=== PATIENT | female | born 1945 | race Caucasian/White ===

== ENCOUNTER → 2024-07-28 | Outpatient (REF) | payer MEDICARE, OTHER | LOC: M LAB REF 17:31 | PROVIDERS: ATTEND Otolaryngology | DX: R22.1 Localized swelling, mass and lump, neck (principal) ==

== ENCOUNTER → 2024-08-30 | Outpatient (CLI) | payer MEDICARE, OTHER ==
[~2024-08-30] MED LIST: LIDOCAINE 1% MDV 20ML VIAL As Ordered ONE
[2024-08-30 13:00] VITALS: TEMP 97.2
[2024-08-30 13:47] VITALS: BP 189/89; O2SAT 98
== END ==
LOC: M IRPRO 12:47
PROVIDERS: ATTEND Otolaryngology
DX: R22.1 Localized swelling, mass and lump, neck (principal)

== ENCOUNTER → 2025-01-18 | Outpatient (CLI) | payer MEDICARE, OTHER ==
[~2025-01-18] VITALS: Ht 152.4 cm; Wt 84.4 kg
[~2025-01-18] MED LIST changes: +ALB2.5NEB NEB; +FERR324T21 PO; +FOLI400T13 PO; -LIDOCAINE 1% MDV 20ML VIAL As Ordered ONE; +LISI20TA33; +METO1TAB87 PO; +NS (Normal Saline) 0.9% 1,000 ML IV SCH; +OMEP-173; +TREL1AER; +VITA500C24 PO; +VITATAB64 PO; +XARE10TA
[2025-01-18 12:00] VITALS: TEMP 99.3
[2025-01-18] MEDS: ceFAZolin SODIUM 2 GM in DEXTROSE 5% (D5W) ADV/MINI-BAG 50 ML IV ONE (13:02)
[2025-01-18] MEDS: MIDAZOLAM INJ 2MG/2ML VIAL IV PRN (13:17)
[2025-01-18] MEDS: fentaNYL 100 MCG/2 ML INJECTION IV PRN (13:17)
[2025-01-18] MEDS: SODIUM CHLORIDE 0.9% INJ 10 ML SYR IV SCH (13:30)
[2025-01-18] MEDS: LIDOCAINE 1% MDV 20ML VIAL SC ONE (13:34)
[2025-01-18 14:05] VITALS: O2SAT 98
[2025-01-18 14:20] VITALS: BP 160/64
== END ==
LOC: M IRPRO 11:45
PROVIDERS: ATTEND Internal Medicine Medical Oncology
DX: C18.9 Malignant neoplasm of colon, unspecified (principal)
CPT/HCPCS: 36561; 99152; 99153; C1894; J0690; J1642; J2250; J3010

== ENCOUNTER → 2025-01-24 | Outpatient (CLI) | payer MEDICARE, OTHER ==
[~2025-01-24] MED LIST changes: +LIDO30CR18 TOP; -NS (Normal Saline) 0.9% 1,000 ML IV SCH; +ONDA-84 PO; +PROC10TA5 PO
== END ==
LOC: M PLARAD 07:27
PROVIDERS: ATTEND Internal Medicine Medical Oncology
DX: C18.2 Malignant neoplasm of ascending colon (principal); Z95.828 Presence of other vascular implants and grafts; R91.8 Other nonspecific abnormal finding of lung field; J98.11 Atelectasis
CPT/HCPCS: 78815; A9552

== ENCOUNTER → 2025-07-25 | Outpatient (CLI) | payer MEDICARE, OTHER ==
[~2025-07-25] MED LIST changes: +CLAR10CA3 PO; +MAGN250T17 PO; +ORAL0.1P MT; +SODI10SO14 OP
== END ==
LOC: M PLARAD 10:30
PROVIDERS: ATTEND Internal Medicine Medical Oncology
DX: C18.2 Malignant neoplasm of ascending colon (principal)
CPT/HCPCS: 78815; A9552